=== PATIENT | female | born 1985 | race African-American/Black ===

== ENCOUNTER 2018-04-17 01:24 | Emergency (ER) | payer SELFPAY ==
[~2018-04-17] VITALS: Ht 165.1 cm; Wt 90.9 kg
[2018-04-17 01:25] VITALS: BP 105/60
[2018-04-17] MEDS ORDERED: IPRATROPIUM BROMIDE 0.5 MG/2.5 ML NEB SOLUTION NEB ONE (01:30)
[2018-04-17] MEDS ORDERED: ALBUTEROL SULFATE 2.5 MG/0.5 ML NEB SOLUTION NEB ONE (01:30)
== END 2018-04-17 01:53 | disposition left against medical advice (07) ==
LOC: EMS 01:24
DX: R06.02 Shortness of breath (principal); J45.909 Unspecified asthma, uncomplicated; Z53.21 Procedure and treatment not carried out due to patient leaving prior to being seen by health care provider
CPT/HCPCS: 94640; J7613